=== PATIENT | female | born 1945 | race Caucasian/White ===

== ENCOUNTER 2016-11-10 22:56 | Emergency (ER) | payer OTHER ==
[~2016-11-10] VITALS: Ht 162.6 cm; Wt 65.0 kg
[~2016-11-10 22:56] MED LIST: ASPIR 8181 M1 PO; FLAXSEED OIL1000 M4 PO; FLONASE16 G1 BOTH NARES; IBUPROFEN200 M1 PO; LUBRICANT DRY E15 ML BOTH EYES; NAPROXEN375 M1 PO; PAXIL10 MG PO; PROTONIX40 MG PO; SUCRALFATE1 GM PO; TYLENOL WITH C1 EACH PO; VITAMIN B12-FO1 EACH PO; VITAMIN D31000 UNIT PO; VITAMIN E400 UNIT PO; ZANTAC150 MG PO
[2016-11-10 23:44] LABS: BASOPHIL COUNT 0.1 K/uL (0-0.1); EOSINOPHIL (%) 2.3 % (0-5); EOSINOPHIL COUNT 0.1 K/uL (0-0.3); HEMATOCRIT 33.7 % (36.0-46.0); IMMATURE GRANULOCYTE (%) 0.3 % (0.0-0.7); INSTRUMENT ABS NEUTROPHIL CT 2.1 K/uL; LYMPHOCYTE COUNT 1.4 K/uL (1.0-2.8); MCH 31.4 PG (29.0-34.0); MCHC 33.5 G/DL (30.0-36.0); MCV 93.6 FL (83-99); MEAN PLAT.VOLUME 9.2 uM^3 (9.5-12.4); MONOCYTE (%) 8.1 % (3-12); MONOCYTE COUNT 0.3 K/uL (0-0.8); NEUTROPHIL (%) 53.4 % (45-76); NEUTROPHIL COUNT 2.1 K/uL (1.8-6.4); PLATELET COUNT 123 K/uL (156-360); RBC DIS.WIDTH-CV 11.9 % (11.8-14.6); RBC DIS.WIDTH-SD 40.9 % (39-53)
[2016-11-10 23:52] LABS: AMYLASE 102 IU/L (1-118); CHLORIDE 104 mEq/L (99-109); POTASSIUM 4.3 mEq/L (3.7-5.4); SODIUM 139 mEq/L (136-147)
[2016-11-10 23:54] LABS: GLUCOSE 99 mg/dL (70-99)
[2016-11-10 23:55] LABS: ANION GAP 7 MEQ/L (2-14)
[2016-11-10 23:57] LABS: PROTHROMBIN TIME 11.1 SEC (10.2-12.9)
[2016-11-10 23:58] LABS: GFR ESTIMATE (CALCULATED) 47 mL/min/
[2016-11-10 23:59] LABS: UREA NITROGEN (BUN) 21 mg/dL (9-23)
[2016-11-11] LABS: PTT 30.9 SEC (25-37)
[2016-11-11 00:01] LABS: LIPASE 29 U/L (1.0-51.0)
[2016-11-11 00:49] LABS: ADD MIUA? YES; BILIRUBIN NEGATIVE; BLOOD SMALL; COLOR STRAW ((YELLOW)); GLUCOSE (STRIP) NEGATIVE; KETONES NEGATIVE; LEUKOCYTES NEGATIVE; NITRITE NEGATIVE; PROTEIN (STRIP) NEGATIVE; UROBILINOGEN 0.2 MG/DL (0.2-1.0)
[2016-11-11 00:55] LABS: BACTERIA NONE SEEN /HPF; EPITHELIAL CELLS NONE SEEN /HPF; MUCUS NONE SEEN /LPF; RED BLOOD CELLS 0-5 /HPF (0-5); UCUL ADDED? NO; WHITE BLOOD CELLS 0-5 /HPF (0-5)
[2016-11-11] MEDS ORDERED: NORCO 5/3251 TABLET PO (01:20)
[2016-11-11 02:17] VITALS: BP 138/89
== END 2016-11-11 02:00 | disposition home or self-care (01) ==
LOC: EME → EDBD 22:56 → TRA 22:56 → EME 22:56 → TRA 11-11 02:00
PROVIDERS: Emergency Medicine
DX: S09.8XXA Other specified injuries of head, initial encounter (principal); S40.022A Contusion of left upper arm, initial encounter; S70.02XA Contusion of left hip, initial encounter; S90.32XA Contusion of left foot, initial encounter; S90.31XA Contusion of right foot, initial encounter; S00.93XA Contusion of unspecified part of head, initial encounter; S50.811A Abrasion of right forearm, initial encounter; M25.512 Pain in left shoulder; M54.6 Pain in thoracic spine; W10.9XXA Fall (on) (from) unspecified stairs and steps, initial encounter; Z79.82 Long term (current) use of aspirin; D61.818 Other pancytopenia
CPT/HCPCS: 70450; 71260; 72125; 72129; 72132; 73030; 73080; 73630; 74177; 80048; 81003; 82150; 83690; 85025; 85610; 85730; 86900; 86901; 99281; 99285; J2270; J2405; J7030

== ENCOUNTER 2016-11-22 19:24 | Emergency (ER) | payer OTHER ==
[~2016-11-22] VITALS: Ht 162.6 cm; Wt 61.6 kg
[~2016-11-22 19:24] MED LIST changes: +NORCO 5/3251 TABLET PO
[2016-11-22 21:18] LABS: HEMATOCRIT 34.2 % (36.0-46.0); MCH 31.9 PG (29.0-34.0); MCHC 33.3 G/DL (30.0-36.0); MCV 95.8 FL (83-99); MEAN PLAT.VOLUME 8.8 uM^3 (9.5-12.4); PLATELET COUNT 154 K/uL (156-360); RBC DIS.WIDTH-CV 12.3 % (11.8-14.6); RBC DIS.WIDTH-SD 42.2 % (39-53); RED BLOOD COUNT 3.57 M/uL (3.80-5.20); WHITE BLOOD COUNT 4.3 K/uL (4.1-10.2)
[2016-11-22 23:27] VITALS: BP 156/88
== END 2016-11-22 23:27 | disposition home or self-care (01) ==
LOC: EME 19:24
PROVIDERS: Emergency Medicine
DX: S50.12XA Contusion of left forearm, initial encounter (principal); W10.9XXD Fall (on) (from) unspecified stairs and steps, subsequent encounter; E78.5 Hyperlipidemia, unspecified; I10 Essential (primary) hypertension; Z88.1 Allergy status to other antibiotic agents; Z88.2 Allergy status to sulfonamides; Z88.6 Allergy status to analgesic agent; Z88.0 Allergy status to penicillin
CPT/HCPCS: 73090; 85027; 99281; 99284